=== PATIENT | male | born 1990 | race Caucasian/White ===

== ENCOUNTER → 2016-07-13 | Outpatient (REF) | payer OTHER | LOC: M SMT 10:00 | PROVIDERS: ATTEND Urology | DX: Z30.2 Encounter for sterilization (principal) ==

== ENCOUNTER → 2016-09-23 | Outpatient (REF) | payer OTHER ==
[2016-09-23 10:58] LABS: IMMMOTILE SPERM CENTRIFUGED ABSENT (ABSENT); IMMOTILE SPERM ABSENT (ABSENT); MOTILE SPERM ABSENT (ABSENT); MOTILE SPERM CENTRIFUGED ABSENT (ABSENT)
== END ==
LOC: M LAB REF 09:53
PROVIDERS: ATTEND Urology
DX: Z98.52 Vasectomy status (principal)

== ENCOUNTER 2018-04-27 13:16 | Inpatient (IN) | payer OTHER ==
[2018-04-27 13:59] LABS: HEMATOCRIT 45.8 % (42.0-52.0); HEMOGLOBIN 16.6 g/dl (13.5-17.5); MEAN CORPUSCULAR HEMOGLOBIN 32.2 pg (27.0-33.0); MEAN CORPUSCULAR HGB CONC 36.2 g/dl (32.0-36.5); MEAN CORPUSCULAR VOLUME 88.9 fl (80.0-96.0); PLATELET COUNT, AUTOMATED 241 10^3/uL (150-450); RED BLOOD COUNT 5.15 10^6/uL (4.30-6.10); RED CELL DISTRIBUTION WIDTH 11.9 % (11.5-14.5); WHITE BLOOD COUNT 12.5 10^3/uL (4.0-10.0)
[2018-04-27 14:35] LABS: ACETAMINOPHEN LEVEL < 2.0 UG/ML (10.0-30.0); ALBUMIN 4.6 GM/DL (3.2-5.2); ALBUMIN/GLOBULIN RATIO 1.48 (1.00-1.93); ALKALINE PHOSPHATASE 54 U/L (45-117); ALT/SGPT 28 U/L (12-78); ANION GAP 9 MEQ/L (8-16); AST/SGOT 20 U/L (7-37); BILIRUBIN,DIRECT 0.3 MG/DL (0.0-0.2); BILIRUBIN,TOTAL 1.3 MG/DL (0.2-1.0); BLOOD UREA NITROGEN 14 MG/DL (7-18); CALCIUM LEVEL 8.9 MG/DL (8.5-10.1); CARBON DIOXIDE LEVEL 29 MEQ/L (21-32); CHLORIDE LEVEL 103 MEQ/L (98-107); CREATININE FOR GFR 0.98 MG/DL (0.70-1.30); ETHYL ALCOHOL (ETHANOL) < 0.003 % (0.000-0.010); GLOMERULAR FILTRATION RATE > 60.0 (>60); GLUCOSE, FASTING 91 MG/DL (70-100); POTASSIUM SERUM 3.9 MEQ/L (3.5-5.1); SALICYLATE LEVEL < 1.7 MG/DL (5.0-30.0); SODIUM LEVEL 141 MEQ/L (136-145); THYROID STIMULATING HORMONE 0.728 uIU/ML (0.358-3.740); TOTAL PROTEIN 7.7 GM/DL (6.4-8.2)
[2018-04-27 15:46] LABS: AMPHETAMINES LEVEL URINE NEGATIVE (NEGATIVE); BARBITURATES URINE NEGATIVE (NEGATIVE); BENZODIAZEPINES URINE NEGATIVE (NEGATIVE); CANNABINOIDS URINE NEGATIVE (NEGATIVE); COCAINE METABOLITE URINE NEGATIVE (NEGATIVE); METHADONE URINE NEGATIVE (NEGATIVE); OPIATES URINE NEGATIVE (NEGATIVE); PHENCYCLIDINE URINE NEGATIVE (NEGATIVE)
[2018-04-27] MEDS ORDERED: traZODone 50 MG TAB PO (16:30)
[2018-04-27] MEDS ORDERED: MOM 30ML SUSPENSION UDC PO (16:30)
[2018-04-27] MEDS: ACETAMINOPHEN TAB 650MG DOSE (2X325MG) PO (20:33)
[2018-04-27] MEDS: THIAMINE 100 MG TAB PO (21:00)
[2018-04-27] MEDS ORDERED: LORazepam 2 MG TAB PO (21:15)
[2018-04-28] MEDS: FOLIC ACID 1 MG TAB PO (08:15)
[2018-04-28] MEDS: MULTIVITAMINS/MINERALS THERAP 1 TAB PO (08:15)
[2018-04-28] MEDS: NICOTINE 7 MG/24 HR TRANSDERMAL TD (08:15)
[2018-04-28] MEDS: THIAMINE 100 MG TAB PO ×2 (08:15→20:43)
[2018-04-28] MEDS: ACETAMINOPHEN TAB 650MG DOSE (2X325MG) PO ×2 (08:16→20:43)
[2018-04-29 06:57] LABS: BASO # 0.1 10^3/uL (0.0-0.2); BASO % 0.8 % (0.0-1.0); EOS # 0.2 10^3/uL (0.0-0.50); EOS % 2.7 % (0.0-3.0); HEMATOCRIT 43.5 % (42.0-52.0); HEMOGLOBIN 15.5 g/dl (13.5-17.5); IMMATURE GRANULOCYTE % 0.5 % (0-3.0); LYMPH # 1.9 10^3/uL (1.5-6.5); LYMPH % 30.4 % (24.0-44.0); MEAN CORPUSCULAR HEMOGLOBIN 32.1 pg (27.0-33.0); MEAN CORPUSCULAR HGB CONC 35.6 g/dl (32.0-36.5); MEAN CORPUSCULAR VOLUME 90.1 fl (80.0-96.0); MONO # 0.5 10^3/uL (0.0-0.8); MONO % 7.4 % (0.0-5.0); NEUTROPHILS # 3.7 10^3/uL (1.8-7.7); NEUTROPHILS % 58.2 % (36.0-66.0); PLATELET COUNT, AUTOMATED 221 10^3/uL (150-450); RED BLOOD COUNT 4.83 10^6/uL (4.30-6.10); RED CELL DISTRIBUTION WIDTH 11.9 % (11.5-14.5); WHITE BLOOD COUNT 6.4 10^3/uL (4.0-10.0)
[2018-04-29 07:21] LABS: ALBUMIN/GLOBULIN RATIO 1.33 (1.00-1.93); ALKALINE PHOSPHATASE 49 U/L (45-117); ALT/SGPT 22 U/L (12-78); ANION GAP 5 MEQ/L (8-16); AST/SGOT 12 U/L (7-37); BILIRUBIN,TOTAL 0.8 MG/DL (0.2-1.0); BLOOD UREA NITROGEN 16 MG/DL (7-18); CARBON DIOXIDE LEVEL 29 MEQ/L (21-32); CHLORIDE LEVEL 106 MEQ/L (98-107); CREATININE FOR GFR 1.02 MG/DL (0.70-1.30); GLOMERULAR FILTRATION RATE > 60.0 (>60); GLUCOSE, FASTING 111 MG/DL (70-100); POTASSIUM SERUM 4.4 MEQ/L (3.5-5.1); SODIUM LEVEL 140 MEQ/L (136-145)
[2018-04-29] MEDS: FOLIC ACID 1 MG TAB PO (07:59)
[2018-04-29] MEDS: MULTIVITAMINS/MINERALS THERAP 1 TAB PO (07:59)
[2018-04-29] MEDS: THIAMINE 100 MG TAB PO ×2 (07:59→21:32)
[2018-04-29] MEDS: NICOTINE 7 MG/24 HR TRANSDERMAL TD (07:59)
[2018-04-29] MEDS: ACETAMINOPHEN TAB 650MG DOSE (2X325MG) PO ×2 (08:00→21:33)
[2018-04-30] MEDS: ACETAMINOPHEN TAB 650MG DOSE (2X325MG) PO (06:27)
[2018-04-30] MEDS: MULTIVITAMINS/MINERALS THERAP 1 TAB PO (08:36)
[2018-04-30] MEDS: FOLIC ACID 1 MG TAB PO (08:36)
[2018-04-30] MEDS: NICOTINE 7 MG/24 HR TRANSDERMAL TD (08:36)
[2018-04-30] MEDS: THIAMINE 100 MG TAB PO (08:36)
[2018-04-30] MEDS: NICOTINE 14 MG/24 HR TRANSDERMAL TD (09:20)
[2018-04-30] MEDS ORDERED: PILL CRUSHER/CUTTER 1 EACH XX (11:15)
[2018-04-30] MEDS: MAALOX 30 ML SUSP *UDC PO ×2 (17:17→23:23)
[2018-05-01] MEDS: NICOTINE 14 MG/24 HR TRANSDERMAL TD (08:16)
[2018-05-01] MEDS: MAALOX 30 ML SUSP *UDC PO ×3 (08:19→18:39)
[2018-05-01] MEDS: ACETAMINOPHEN TAB 650MG DOSE (2X325MG) PO (08:19)
[2018-05-02] MEDS: NICOTINE 14 MG/24 HR TRANSDERMAL TD (09:00)
[2018-05-02] MEDS: ACETAMINOPHEN TAB 650MG DOSE (2X325MG) PO (09:12)
[2018-05-02] MEDS: OMEPRAZOLE 20 MG CAP PO (11:14)
[2018-05-03] MEDS: OMEPRAZOLE 20 MG CAP PO (08:15)
[2018-05-03] MEDS: NICOTINE 14 MG/24 HR TRANSDERMAL TD (08:16)
== END 2018-05-03 10:30 | disposition home or self-care (01) | DRG 885 ==
LOC: M ED 13:16 → M ED INP 16:26 → M PSY 17:33
PROVIDERS: Psychiatry & Neurology Psychiatry
DX: F33.9 Major depressive disorder, recurrent, unspecified (principal); F10.20 Alcohol dependence, uncomplicated; F43.10 Post-traumatic stress disorder, unspecified; F17.210 Nicotine dependence, cigarettes, uncomplicated; Z63.0 Problems in relationship with spouse or partner; Z79.899 Other long term (current) drug therapy; Z56.6 Other physical and mental strain related to work; Z91.82 Personal history of military deployment; Z59.9 Problem related to housing and economic circumstances, unspecified

== ENCOUNTER 2018-08-13 18:39 | Inpatient (IN) | payer OTHER ==
[~2018-08-13] VITALS: Ht 205.7 cm; Wt 86.0 kg
[~2018-08-13 18:39] MED LIST: ACET500T15 PO; ARIP2TAB PO; ZOLO50TA PO
[2018-08-13] MEDS ORDERED: BUPR300T34 PO (18:49)
[2018-08-13] MEDS ORDERED: OMEP40CA2 PO (18:49)
[2018-08-13] MEDS ORDERED: HYDR100C PO (18:49)
--- NOTE | 2018-08-13 20:28 | REP ---
Portable chest x-ray: Single view. History: Altered mental status. Findings: EKG monitoring electrodes are seen. Lungs are symmetrically aerated and clear. Pleural angles are sharp. Heart size is normal. Pulmonary vasculature is not increased. No bony abnormality is seen. Impression: No active disease. Electronically Signed by Eddie Yeh MD 08/13/2018 08:20 P
--- NOTE | 2018-08-13 20:42 | REP ---
Head CT without contrast: History: Altered mental status. Comparison study: No comparison study. CT findings: Bone window settings demonstrate an intact bony calvarium. There is no evidence of skull fracture or incidental bony calvarial lesion. The visualized paranasal sinuses appear clear. No intraorbital abnormality is seen. On soft tissue window setting images; the lateral, third, and fourth ventricles are normal in size and position. Benoit-white differentiation pattern is normal above and below the tentorium. There are is no evidence of intracranial hemorrhage. No mass, edema, infarction, or midline shift is seen. No extra-axial fluid collection is appreciated. Impression: Negative noncontrast head CT. Electronically Signed by Eddie Yeh MD 08/13/2018 08:34 P
[2018-08-13 20:43] LABS: BASO # 0.1 10^3/uL (0.0-0.2); EOS # 0.1 10^3/uL (0.0-0.50); EOS % 1.3 % (0.0-3.0); HEMATOCRIT 44.7 % (42.0-52.0); HEMOGLOBIN 16.5 g/dl (13.5-17.5); LYMPH # 2.8 10^3/uL (1.5-6.5); LYMPH % 31.2 % (24.0-44.0); MEAN CORPUSCULAR HEMOGLOBIN 32.2 pg (27.0-33.0); MEAN CORPUSCULAR VOLUME 87.3 fl (80.0-96.0); MONO # 0.8 10^3/uL (0.0-0.8); MONO % 9.3 % (0.0-5.0); NEUTROPHILS # 5.1 10^3/uL (1.8-7.7); PLATELET COUNT, AUTOMATED 232 10^3/uL (150-450); RED BLOOD COUNT 5.12 10^6/uL (4.30-6.10); WHITE BLOOD COUNT 8.9 10^3/uL (4.0-10.0)
[2018-08-13 20:49] LABS: MEAN CORPUSCULAR HGB CONC 36.9 g/dl (32.0-36.5)
[2018-08-13 21:07] LABS: ACETAMINOPHEN LEVEL < 2.0 UG/ML (10.0-30.0); ALBUMIN 4.4 GM/DL (3.2-5.2); ALT/SGPT 36 U/L (12-78); BILIRUBIN,DIRECT 0.4 MG/DL (0.0-0.2); BILIRUBIN,TOTAL 1.8 MG/DL (0.2-1.0); BLOOD UREA NITROGEN 12 MG/DL (7-18); CALCIUM LEVEL 8.6 MG/DL (8.5-10.1); CARBON DIOXIDE LEVEL 28 MEQ/L (21-32); CHLORIDE LEVEL 107 MEQ/L (98-107); CPK CREATINE PHOSPHOKINASE 197 U/L (39-308); ETHYL ALCOHOL (ETHANOL) < 0.003 % (0.000-0.010); GLOMERULAR FILTRATION RATE > 60.0 (>60); GLUCOSE, FASTING 87 MG/DL (70-100); POTASSIUM SERUM 3.8 MEQ/L (3.5-5.1); SALICYLATE LEVEL < 1.7 MG/DL (5.0-30.0); SODIUM LEVEL 140 MEQ/L (136-145); TOTAL PROTEIN 7.5 GM/DL (6.4-8.2)
[2018-08-13 23:47] LABS: AMPHETAMINES LEVEL URINE NEGATIVE (NEGATIVE); BARBITURATES URINE NEGATIVE (NEGATIVE); BENZODIAZEPINES URINE NEGATIVE (NEGATIVE); CANNABINOIDS URINE NEGATIVE (NEGATIVE); COCAINE METABOLITE URINE NEGATIVE (NEGATIVE); METHADONE URINE NEGATIVE (NEGATIVE); OPIATES URINE NEGATIVE (NEGATIVE); PHENCYCLIDINE URINE NEGATIVE (NEGATIVE)
[2018-08-14] MEDS ORDERED: MOM 30ML SUSPENSION UDC PO PRN (00:30)
[2018-08-14] MEDS ORDERED: traZODone 50 MG TAB PO PRN (00:30)
[2018-08-14] MEDS ORDERED: MAALOX 30 ML SUSP *UDC PO PRN (00:30)
[2018-08-14] MEDS ORDERED: WELLTAB40 PO (00:54)
[2018-08-14] MEDS ORDERED: DOXE50CA PO (00:54)
[2018-08-14] MEDS ORDERED: OMEP20CA3 PO (00:54)
[2018-08-14] MEDS ORDERED: HYDR50CA2 PO (00:54)
[2018-08-14 07:03] VITALS: BP 122/62
--- NOTE | 2018-08-14 08:53 | ECGEPIP ---
Stationary ECG Study [facility] - ED Test Date: 2018-08-13 Pat Name: APURVA BAUTISTA Department: Room: [place] [address] Gender: M Departmental Shipping Clerk: JOSE RAUL : 1990 Requested By: Michaela Baer Order Number: [id number] Reading MD: Kedar Nix Measurements Intervals [place] Rate: 81 P: 25 PA: 163 QRS: 32 QRSD: 109 T: 14 QT: 352 QTc: 410 Interpretive Statements SINUS RHYTHM INCOMPLETE RIGHT BUNDLE BRANCH BLOCK POOR R WAVE PROGRESSION SIMILAR TO 04/29/18 Electronically Signed On 08-14-2018 8:53:17 EDT by Kedar Nix
--- NOTE | 2018-08-14 10:21 | HPEPDOC ---
[facility] Medical History & Physical Date of Admission Aug 14, 2018 History and Physical PCP: [facility] ATTENDING: Dr. Austin Allen HPI: 28yoM admitted to [facility] for unspecified depressive disorder, being medically examined today. The pt was brought to the ED with AMS after possibly taking unknown amount of hydrxyzine, Wellbutrin and Prilosec. The pt was medically cleared and transferred to [facility]. No acute medical complaints today. Denies any fevers, chills, weakness, fatigue, SAAVEDRA, CP, SOB, cough, palpitations, abdominal pain, N/V/D or changes in bowel or bladder habits. PMHx: Anxiety depression H/O SI H/O alcohol use chronic back pain GERD PSHX: tonsillectomy wisdom teeth extraction Vasectomy SOCHX: Resides in: [facility], from [facility] Marital Status: Kids: 2 Employment: Active duty Tobacco use: 1/2 ppd ETOH: States h/o alcohol use, none in 105 days Illicit Drugs: Denies IV Drug Use: Denies Tattoos done unprofessionally: Denies FAMHX: Mother: Alive, h/o cancer Father: Alive, HTN Siblings: brother Alive, DM Children: Alive, well Unexpected deaths due to medical reasons: None. ROS: As noted in HPI, otherwise 11pt ROS of systems reviewed and unremarkable. PE: GEN: 28yoM, appears stated age. Well-nourished, well developed. No acute distress. Alert and oriented x 3. Pleasant, interactive. HEENT: Normocephalic, atraumatic. Pupils are equal, round, and reactive to light. Extraocular movements are intact. No nystagmus appreciated. Sclera are nonicteric. Conjunctiva without injection. Nose midline. Nasal turbinates without bogginess. EACs both patent BL. TMs both visualized and tomlinson with good cone of light, no bulging or erythema. No facial asymmetry. Moist mucous membranes. Dentition fair. Pharynx pink and moist, no cobblestoning. Neck supple, trachea midline. No lymphadenopathy or thyromegaly appreciated. CHEST: Regular rate and rhythm, +S1, +S2 LUNGS: Clear to auscultation bilaterally. No wheezes, rales, or rhonchi. Breathing appears symmetric and easy. Patient is speaking in full sentences. No accessory muscle use. ABD: Round, soft, non-tender, non-distended. +Bowel sounds throughout. No rebound or guarding. No costovertebral angle tenderness. EXT: Pulses 2+ bilaterally dorsalis pedis and radial. No lower extremity edema appreciated. SKIN: [place], dry, warm. Capillary refill <2sec. No rashes. NEURO: Alert and oriented x 3. Cranial nerves III-XII are intact. No focal deficits appreciated. EKG: SINUS RHYTHM INCOMPLETE RIGHT BUNDLE BRANCH BLOCK POOR R WAVE PROGRESSION SIMILAR TO 04/29/18 Electronically Signed On 08-14-2018 8:53:17 EDT by Kedar Nix A&P: 28yoM admitted to [facility] for unspecified depressive disorder 1. Psych. Plan per Psychiatry. EKG on file. 2. Nicotine dependence. Patch available. 3.Follow up with PCP on discharge. 4. H/O Alcohol use. Management per psychiatry. 5. GERD. Continue Prilosec. 6. Chronic back pain. Continue Tylenol as needed. Outpt f/u with PCP. Recommend pain mgmt consultation if needed. 7. Staff member Zeferino present throughout exam. Vital Signs Vital Signs Date Time Temp Pulse Resp B/P (MAP) Pulse Ox O2 Delivery O2 Flow Rate FiO2 08/14/18 07:03 99.4 92 18 122/62 (82) 08/14/18 04:03 96 Room Air Laboratory Data Labs 24H Laboratory Tests 2 08/13/18 20:21: Immature Granulocyte % (Auto) 0.2, White Blood Count 8.9, Red Blood Count 5.12, Hemoglobin 16.5, Hematocrit 44.7, Mean Corpuscular Volume 87.3, Mean Corpuscular Hemoglobin 32.2, Mean Corpuscular Hemoglobin Concent 36.9H, Red Cell Distribution Width 11.8, Platelet Count 232, Neutrophils (%) (Auto) 57.0, Lymphocytes (%) (Auto) 31.2, Monocytes (%) (Auto) 9.3H, Eosinophils (%) (Auto) 1.3, Basophils (%) (Auto) 1.0, Neutrophils # (Auto) 5.1, Lymphocytes # (Auto) 2.8, Monocytes # (Auto) 0.8, Eosinophils # (Auto) 0.1, Basophils # (Auto) 0.1, Nucleated Red Blood Cells % (auto) 0.0, Anion Gap 5L, Glomerular Filtration Rate > 60.0, Calcium Level 8.6, Aspartate Amino Transf (AST/SGOT) 21, Alanine Aminotransferase (ALT/SGPT) 36, Alkaline Phosphatase 54, Total Bilirubin 1.8H, Direct Bilirubin 0.4H, Total Creatine Kinase 197, Total Protein 7.5, Albumin 4.4, Albumin/Globulin Ratio 1.42, Thyroid Stimulating Hormone (TSH) 1.360, Salicylates Level < 1.7L, Acetaminophen Level < 2.0L, Ethyl Alcohol Level < 0.003 08/13/18 23:18: Urine Amphetamines Screen NEGATIVE, Urine Benzodiazepines Screen NEGATIVE, Urine Opiates Screen NEGATIVE, Urine Methadone Screen NEGATIVE, Urine Barbiturates Screen NEGATIVE, Urine Phencyclidine Screen NEGATIVE, Urine Cocaine Metabolite Screen NEGATIVE, Urine Cannabinoids Screen NEGATIVE CBC/BMP Laboratory Tests 08/13/18 20:21 Red Blood Count 5.12, Mean Corpuscular Volume 87.3, Mean Corpuscular Hemoglobin 32.2, Mean Corpuscular Hemoglobin Concent 36.9 H, Red Cell Distribution Width 11.8, Neutrophils (%) (Auto) 57.0, Lymphocytes (%) (Auto) 31.2, Monocytes (%) (Auto) 9.3 H, Eosinophils (%) (Auto) 1.3, Basophils (%) (Auto) 1.0, Neutrophils # (Auto) 5.1, Lymphocytes # (Auto) 2.8, Monocytes # (Auto) 0.8, Eosinophils # (Auto) 0.1, Basophils # (Auto) 0.1 Home Medications Scheduled Bupropion HCl (Wellbutrin Xl) 300 Mg Tab, 300 MG PO DAILY Omeprazole (Omeprazole) 20 Mg Cap, 20 MG PO DAILY Scheduled PRN Acetaminophen (Acetaminophen) 500 Mg Tab, 1,000 MG PO Q6H PRN for PAIN Doxepin HCl (Doxepin HCl) 50 Mg Cap, 50 MG PO QHS PRN for SLEEP Hydroxyzine Pamoate (Hydroxyzine Pamoate) 50 Mg Cap, 50 MG PO QID PRN for ANXIETY Allergies Coded Allergies: No Known Allergies (Unverified , 04/27/18) Jasmin Daniels Aug 14, 2018 10:21
[2018-08-14] MEDS ORDERED: hydrOXYzine 50 MG TAB PO SCH (12:15)
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
[2018-08-14] MEDS ORDERED: DOXEPIN 25 MG CAP PO PRN (14:00)
[2018-08-14 14:57] LABS: CHLAMYDIA DNA AMPLIFICATION NEGATIVE (NEGATIVE); GC DNA AMPLIFICATION NEGATIVE (NEGATIVE)
[2018-08-14 18:26] VITALS: BP 140/87
[2018-08-15 06:25] VITALS: BP 119/71
[2018-08-15 07:26] LABS: CHOLESTEROL RISK RATIO 3.704 (<5)
[2018-08-15] MEDS ORDERED: hydrOXYzine 50 MG TAB PO PRN ×2 (08:30→12:15)
[2018-08-15] MEDS ORDERED: buPROPion **XL** TABLET 150MG (WELLBUTRIN XL) PO SCH (09:00)
[2018-08-15 18:10] VITALS: BP 140/85
[2018-08-15] MEDS ORDERED: VENLAFAXINE **XR** 37.5 MG CAPSULE PO SCH (21:00)
--- NOTE | 2018-08-15 22:36 | MHIPNPDOC ---
[facility] Progress Note Progress Note DATE OF SERVICE: 08/15/18 HISTORY: Patient is a 28 -year-old , male, who according to ED report: " Pt brought to ED by [facility] after he apparently spoke or texted his brother today making suicidal threats. Pt is quite guarded and evasive in ED, answers to most questions "I believe", implying he does not recall anything about what was reported today, when asked about tx hx and medications pt responds with same "I believe so". Pt does admit to feeling depressed, states "my life is a shit show", will not elaborate or discuss stressors, when asked if he ingested extra medications as was reported earlier pt states he cannot recall. Pt appears unreliable, poor eye contact, minimal answers. Pt denies HI/AH/VH, denies recent substance abuse has hx of ETOH abuse. Pt was admitted to [facility] 04/15 for depression/SI, at that time was depressed over marital and occupational issues. Pt admits to suicidal "plan" nine years ago whe he attempted to purchase an illegal firearm while in [place], stated he had "planned for some time" to purchase the gun and shoot self. Pt exhibits poor insight/judgment, appears at risk for self harm." VITAL SIGNS: See below. NEW TEST RESULTS: See below CURRENT MEDICATIONS: See below. MENTAL STATUS EXAMINATION: General Appearance: well groomed, appears stated age, hospital scubs/clothing Build: average Demeanor: less guarded, depressed, anxious Eye Contact: intense Activity: anxious, laying in bed Behavior: cooperative Speech: clear, spontaneous, reg/rate,rhythm,volume Mood: depressed, anxious Affect: anxious, hostile Thought Process: logical/linear Thought Content (Delusions): none reported Thought Content (Other): guarded, guilty Thought Content (Aggressive): none reported Perception (Hallucinations): none reported Perception (Other): none reported Cognition (Impairment of): none reported Cognition(Intelligence Est.): average Oriented: Awake, Alert, Oriented times three Insight: poor Judgment: Poor Psychosis: Denies Diagnoses 1. Adjustment disorder with depressed/anxious 2. Cluster B personality disorder (borderline and antisocial traits) 3. Generalized Anxiety disorder ASSESSMENT: Patient continues to report a series of cognitive distortions that are related to his marital life. In a not very clear way, he implies that he has learned that apparently his has been supportive of him when he thought she "was not supportive". He worries about his lack of recall about monday afternoon. He says it's not the first time that this happens to him, it has been 3 times within the last year. Patient's demeanor is more cooperative today, he is begining to realize that he has contributed to his marital problems, that not everything is on his . He looks less angr and more depressed today. MANAGEMENT PLAN: Will decrease Wellbutrin to 75 mgs PO tomorrow and will increase Effexor to 75 mgs PO tomorrow. TIME SPENT: 30 minutes. Vital Signs Vital Signs Date Time Temp Pulse Resp B/P (MAP) Pulse Ox O2 Delivery O2 Flow Rate FiO2 08/15/18 06:25 98.6 65 18 119/71 (87) 08/14/18 04:03 96 Room Air Laboratory Data 24H Labs Laboratory Tests 2 08/15/18 06:19: Triglycerides Level 166H, LDL Cholesterol 86, Total Cholesterol 163, Non-HDL Cholesterol (LDL + VLDL) 119, Total HDL Cholesterol 44, Cholesterol/HDL Ratio 3.704 Current Medications Current Medications Acetaminophen (Tylenol Tab) 650 mg Q6HP PRN PO HEADACHE or DISCOMFORT; Start 08/14/18 at 00:30 Al Hydrox/Mg Hydrox/Simethicone (Mylanta) 30 ml Q4HP PRN PO HE ARTBURN/INDIGESTION; Start 08/14/18 at 00:30 Bupropion HCl (Wellbutrin Xl) 150 mg QAM PO Last administered on 08/15/18at 08:21; Start 08/15/18 at 09:00 Doxepin HCl (SINEquan) 50 mg QHS PRN PO INSOMNIA; Start 08/14/18 at 14:00 Home Med (Med Rec Complete!) ASDIRECTED XX ; Start 08/14/18 at 01:00; Stop 08/14/18 at 01:00; Status DC Hydroxyzine HCl (Atarax) 50 mg Q6H PO ; Start 08/14/18 at 12:15; Stop 08/14/18 at 14:00; Status DC Hydroxyzine HCl (Atarax) 50 mg Q6HP PRN PO ANXIETY/AGITATION Last administered on 08/15/18at 09:21; Start 08/15/18 at 08:30 Hydroxyzine HCl (Atarax) 50 mg Q6HP PRN PO ANXIETY/AGITATION; Start 08/15/18 at 12:15; Stop 08/15/18 at 12:15; Status DC Magnesium Hydroxide (Milk Of Magnesia) 30 ml DAILYPRN PRN PO CONSTIPATION; Start 08/14/18 at 00:30 Trazodone HCl (Desyrel) 50 mg QHSP PRN PO INSOMNIA; Start 08/14/18 at 00:30 Venlafaxine HCl (Effexor Xr) 37.5 mg QHS PO ; Start 08/15/18 at 21:00 Allergies Coded Allergies: No Known Allergies (Unverified , 04/27/18) AMOL JAUN MD Aug 15, 2018 16:03
[2018-08-15] MEDS ORDERED: PILL CRUSHER/CUTTER 1 EACH XX PRN (22:45)
[2018-08-16 06:30] VITALS: BP 141/78
[2018-08-16] MEDS: ACETAMINOPHEN TAB 650MG DOSE (2X325MG) PO PRN (08:36)
[2018-08-16] MEDS ORDERED: buPROPion 100 MG TAB PO SCH (09:00)
[2018-08-16] MEDS ORDERED: VENLAFAXINE **XR** 75MG CAPSULE PO SCH (09:00)
[2018-08-16 18:00] VITALS: BP 140/83
--- NOTE | 2018-08-16 18:35 | MHIPNPDOC ---
[facility] Progress Note Progress Note DATE OF SERVICE: 08/16/18 HISTORY: Patient is a 28 -year-old , male, who according to ED report: " Pt brought to ED by [facility] after he apparently spoke or texted his brother today making suicidal threats. Pt is quite guarded and evasive in ED, answers to most questions "I believe", implying he does not recall anything about what was reported today, when asked about tx hx and medications pt responds with same "I believe so". Pt does admit to feeling depressed, states "my life is a shit show", will not elaborate or discuss stressors, when asked if he ingested extra medications as was reported earlier pt states he cannot recall. Pt appears unreliable, poor eye contact, minimal answers. Pt denies HI/AH/VH, denies recent substance abuse has hx of ETOH abuse. Pt was admitted to [facility] 04/15 for depression/SI, at that time was depressed over marital and occupational issues. Pt admits to suicidal "plan" nine years ago whe he attempted to purchase an illegal firearm while in [place], stated he had "planned for some time" to purchase the gun and shoot self. Pt exhibits poor insight/judgment, appears at risk for self harm." VITAL SIGNS: See below. NEW TEST RESULTS: See below CURRENT MEDICATIONS: See below. MENTAL STATUS EXAMINATION: General Appearance: well groomed, appears stated age, hospital scrubs/clothing, yawning all the time Build: average Demeanor: less guarded, depressed, anxious, Eye Contact: intense Activity: calm, mildly anxious Behavior: cooperative Speech: clear, spontaneous, reg/rate,rhythm,volume Mood: depressed, anxious Affect: anxious Thought Process: logical/linear Thought Content (Delusions): none reported Thought Content (Other): guarded, guilty Thought Content (Aggressive): none reported Perception (Hallucinations): none reported Perception (Other): none reported Cognition (Impairment of): none reported Cognition(Intelligence Est.): average Oriented: Awake, Alert, Oriented times three Insight: poor Judgment: Poor Psychosis: Denies Diagnoses 1. Adjustment disorder with depressed/anxious 2. Cluster B personality disorder (borderline and antisocial traits) 3. Generalized Anxiety disorder ASSESSMENT:patient says he doesn't believe he overdosed on Monday when he can't remember what happened during the afternoon. He says he keeps his medications where he keeps his child's medications in a safe. He says he spoke to his yesterday, she was surprised he was in here, they had a good conversation, they didn't fight but he still thinks that he will end up him MANAGEMENT PLAN: Effexor 75 mgs PO BID TIME SPENT: 30 minutes. Vital Signs Vital Signs Date Time Temp Pulse Resp B/P (MAP) Pulse Ox O2 Delivery O2 Flow Rate FiO2 08/16/18 06:30 98.9 63 18 141/78 (99) 08/14/18 04:03 96 Room Air Current Medications Current Medications Acetaminophen (Tylenol Tab) 650 mg Q6HP PRN PO HEADACHE or DISCOMFORT Last administered on 08/16/18at 08:36; Start 08/14/18 at 00:30 Al Hydrox/Mg Hydrox/Simethicone (Mylanta) 30 ml Q4HP PRN PO HEARTBURN/INDIGESTION; Start 08/14/18 at 00:30 Bupropion HCl (Wellbutrin Xl) 150 mg QAM PO Last administered on 08/15/18at 08:21; Start 08/15/18 at 09:00; Stop 08/15/18 at 22:39; Status DC Bupropion HCl (Wellbutrin) 50 mg DAILY PO Last administered on 08/16/18at 08:37; Start 08/16/18 at 09:00; Stop 08/16/18 at 18:18; Status DC Doxepin HCl (SINEquan) 50 mg QHS PRN PO INSOMNIA; Start 08/14/18 at 14:00 Home Med (Med Rec Complete!) ASDIRECTED XX ; Start 08/14/18 at 01:00; Stop 08/14/18 at 01:00; Status DC Hydroxyzine HCl (Atarax) 50 mg Q6H PO ; Start 08/14/18 at 12:15; Stop 08/14/18 at 14:00; Status DC Hydroxyzine HCl (Atarax) 50 mg Q6HP PRN PO ANXIETY/AGITATION Last administered on 08/15/18at 09:21; Start 08/15/18 at 08:30 Hydroxyzine HCl (Atarax) 50 mg Q6HP PRN PO ANXIETY/AGITATION; Start 08/15/18 at 12:15; Stop 08/15/18 at 12:15; Status DC Magnesium Hydroxide (Milk Of Magnesia) 30 ml DAILYPRN PRN PO CONSTIPATION; Start 08/14/18 at 00:30 Trazodone HCl (Desyrel) 50 mg QHSP PRN PO INSOMNIA; Start 08/14/18 at 00:30 Venlafaxine HCl (Effexor Xr) 37.5 mg QHS PO Last administered on 08/15/18at 21:24; Start 08/15/18 at 21:00; Stop 08/15/18 at 22:39; Status DC Venlafaxine HCl (Effexor Xr) 75 mg QAM PO Last administered on 08/16/18at 08:36; Start 08/16/18 at 09:00 Allergies Coded Allergies: No Known Allergies (Unverified , 04/27/18) AMOL JUAN MD Aug 16, 2018 18:35
[2018-08-17 06:49] VITALS: BP 146/80
[2018-08-17] MEDS: VENLAFAXINE 37.5 MG TAB PO SCH ×2 (08:44→20:12)
[2018-08-17] MEDS: ACETAMINOPHEN TAB 650MG DOSE (2X325MG) PO PRN (16:25)
--- NOTE | 2018-08-17 17:35 | MHIPNPDOC ---
[facility] Progress Note Progress Note DATE OF SERVICE: 08/17/18 HISTORY: Patient is a 28 -year-old , male, who according to ED report: " Pt brought to ED by [facility] after he apparently spoke or texted his brother today making suicidal threats. Pt is quite guarded and evasive in ED, answers to most questions "I believe", implying he does not recall anything about what was reported today, when asked about tx hx and medications pt responds with same "I believe so". Pt does admit to feeling depressed, states "my life is a shit show", will not elaborate or discuss stressors, when asked if he ingested extra medications as was reported earlier pt states he cannot recall. Pt appears unreliable, poor eye contact, minimal answers. Pt denies HI/AH/VH, denies recent substance abuse has hx of ETOH abuse. Pt was admitted to [facility] 04/15 for depression/SI, at that time was depressed over marital and occupational issues. Pt admits to suicidal "plan" nine years ago whe he attempted to purchase an illegal firearm while in [place], stated he had "planned for some time" to purchase the gun and shoot self. Pt exhibits poor insight/judgment, appears at risk for self harm." VITAL SIGNS: See below. NEW TEST RESULTS: See below CURRENT MEDICATIONS: See below. MENTAL STATUS EXAMINATION: General Appearance: well groomed, appears stated age, hospital scrubs/clothing, yawning all the time Build: average Demeanor: less guarded, depressed, anxious, Eye Contact: intense Activity: calm, mildly anxious Behavior: cooperative Speech: clear, spontaneous, reg/rate,rhythm,volume Mood: depressed, anxious Affect: anxious Thought Process: logical/linear Thought Content (Delusions): none reported Thought Content (Other): guarded, guilty Thought Content (Aggressive): none reported Perception (Hallucinations): none reported Perception (Other): none reported Cognition (Impairment of): none reported Cognition(Intelligence Est.): average Oriented: Awake, Alert, Oriented times three Insight: poor Judgment: Poor Psychosis: Denies Diagnoses 1. Adjustment disorder with depressed/anxious 2. Cluster B personality disorder (borderline and antisocial traits) 3. Generalized Anxiety disorder ASSESSMENT:Patient's mental status hasn't changed from yesterday. He doesn't seem to be interested in his treatment, for a brief moment it seemed he was but not now. He only wants to be discharged. MANAGEMENT PLAN: Effexor 75 mgs PO BID TIME SPENT: 30 minutes. Vital Signs Vital Signs Date Time Temp Pulse Resp B/P (MAP) Pulse Ox O2 Delivery O2 Flow Rate FiO2 08/17/18 06:49 99.3 66 12 146/80 (102) 08/14/18 04:03 96 Room Air Current Medications Current Medications Acetaminophen (Tylenol Tab) 650 mg Q6HP PRN PO HEADACHE or DISCOMFORT Last administered on 08/17/18at 16:25; Start 08/14/18 at 00:30 Al Hydrox/Mg Hydrox/Simethicone (Mylanta) 30 ml Q4HP PRN PO HEARTBURN/INDIGESTION; Start 08/14/18 at 00:30 Bupropion HCl (Wellbutrin Xl) 150 mg QAM PO Last administered on 08/15/18 08:21; Start 08/15/18 at 09:00; Stop 08/15/18 at 22:39; Status DC Bupropion HCl (Wellbutrin) 50 mg DAILY PO Last administered on 08/16/18at 08:37; Start 08/16/18 at 09:00; Stop 08/16/18 at 18:18; Status DC Doxepin HCl (SINEquan) 50 mg QHS PRN PO INSOMNIA; Start 08/14/18 at 14:00 Home Med (Med Rec Complete!) ASDIRECTED XX ; Start 08/14/18 at 01:00; Stop 08/14/18 at 01:00; Status DC Hydroxyzine HCl (Atarax) 50 mg Q6H PO ; Start 08/14/18 at 12:15; Stop 08/14/18 at 14:00; Status DC Hydroxyzine HCl (Atarax) 50 mg Q6HP PRN PO ANXIETY/AGITATION Last administered on 08/15/18at 09:21; Start 08/15/18 at 08:30 Hydroxyzine HCl (Atarax) 50 mg Q6HP PRN PO ANXIETY/AGITATION; Start 08/15/18 at 12:15; Stop 08/15/18 at 12:15; Status DC Magnesium Hydroxide (Milk Of Magnesia) 30 ml DAILYPRN PRN PO CONSTIPATION; Start 08/14/18 at 00:30 Trazodone HCl (Desyrel) 50 mg QHSP PRN PO INSOMNIA; Start 08/14/18 at 00:30 Venlafaxine HCl (Effexor Xr) 37.5 mg QHS PO Last administered on 08/15/18at 21:24; Start 08/15/18 at 21:00; Stop 08/15/18 at 22:39; Status DC Venlafaxine HCl (Effexor Xr) 75 mg QAM PO Last administered on 08/16/18at 08:36; Start 08/16/18 at 09:00; Stop 08/16/18 at 18:21; Status DC Venlafaxine HCl (Effexor) 75 mg BID PO Last administered on 08/17/18at 08:44; Start 08/17/18 at 09:00 Allergies Coded Allergies: No Known Allergies (Unverified , 04/27/18) AMOL JUAN MD Aug 17, 2018 17:35
[2018-08-17 18:12] VITALS: BP 138/76
[2018-08-18 06:35] VITALS: BP 130/83
[2018-08-18] MEDS: VENLAFAXINE 37.5 MG TAB PO SCH ×2 (09:34→21:42)
[2018-08-18 18:00] VITALS: BP 134/77
[2018-08-19 06:28] VITALS: BP 119/75
[2018-08-19] MEDS: VENLAFAXINE 37.5 MG TAB PO SCH ×2 (09:23→20:15)
--- NOTE | 2018-08-19 14:03 | MHIPN ---
DATE: 08/18/2018 CHIEF COMPLAINT: He says he feels okay. SUBJECTIVE: He is seen for followup in the presence of staff. He says he feels okay, and that slept fairly well, but does feel tired. He says appetite is fair, it has improved. He does not think that he has suicidal thoughts. MENTAL STATUS EXAMINATION: Neat, somewhat superficially cooperative. He is guarded at times. No agitation. No psychomotor retardation. Affect is restricted in range, somewhat incongruent with mood. Denies any suicidal thoughts or intents at present. No homicidal ideas or intents. Currently, no evidence of any psychosis. Cognition grossly intact. Judgment and insight are compromised. ASSESSMENT: 1. Generalized anxiety disorder. 2. Adjustment disorder with depressed mood. 3. Some concerns regarding a personality disorder. PLAN: Continue current care, observations, venlafaxine is to continue at 150 mg daily in divided doses. We will encourage him to participate in activities on the unit. Further recommendations will be made depending on the clinical picture.
[2018-08-19 18:00] VITALS: BP 138/83
[2018-08-20 06:41] VITALS: BP 139/83
[2018-08-20] MEDS: VENLAFAXINE 37.5 MG TAB PO SCH (08:54)
[2018-08-20] MEDS ORDERED: VENL37TA PO (09:17)
--- NOTE | 2018-08-21 09:31 | MHDSPDOC ---
[facility] Discharge Summary Discharge Summary DATE OF ADMISSION: Aug 14, 2018 at 00:16 DATE OF DISCHARGE: Aug 20, 2018 at 10:05 DISCHARGE DIAGNOSES: 1. Adjustment disorder with depressed/anxious 2. Cluster B personality disorder (borderline and antisocial traits) 3. Generalized Anxiety disorder REASON FOR ADMISSION: Per this health underwriter's H and P 08/14/18: "Patient is a 28 -year-old , male, who according to ED report: " Pt brought to ED by [facility] after he apparently spoke or texted his brother today making suicidal threats. Pt is quite guarded and evasive in ED, answers to most questions "I believe", implying he does not recall anything about what was reported today, when asked about tx hx and medications pt responds with same "I believe so". Pt does admit to feeling depressed, states "my life is a shit show", will not elaborate or discuss stressors, when asked if he ingested extra medications as was reported earlier pt states he cannot recall. Pt appears unreliable, poor eye contact, minimal answers. Pt denies HI/AH/VH, denies recent substance abuse has hx of ETOH abuse. Pt was admitted to [facility] 04/15 for depression/SI, at that time was depressed over marital and occupational issues. Pt admits to suicidal "plan" nine years ago whe he attempted to purchase an illegal firearm while in [place], stated he had "planned for some time" to purchase the gun and shoot self. Pt exhibits poor insight/judgment, appears at risk for self harm."" CONSULTANTS INVOLVED: None TREATMENT AND PROGRESS ON THE UNIT : Patient admitted on a 9.39 involuntary status to the [facility] after reporting suicidal ideation in the context of depression and anxiety. CBC, CMP, UA were all unremarkable. Has a history of alcohol abuse, but BAL was negative. Also urine toxicology was negative. EKG was sinus rhythm and QTc 410 ms with incomplete RBBB. He reports relationship problems and infidelities as stressors at home. He also reported agitation and anger on admission and had been prescribed Wellbutrin (bupropion), which was discontinued. He was given as needed hydroxyzine 50 mg PO QID for anxiety and as needed doxepin 50 mg PO QHS for sleep. His bupropion was switched for (Effexor) venlafaxine which was started at 37.5 mg PO daily and titrated up to 75 mg PO BID for mood and anxiety. During his stay he attended group therapy sessions, received individual group therapy and denied common or rare side effects from his medications. Blood pressure remained in the 130's/70's-80's. His depression and anxiety symptoms improved, no longer endorsed suicidal ideations and reported he would possibly seek out family therapy to help him and his develop a healthier relationship. HOSPITAL COURSE: As seen above. DISCHARGE ASSESSMENT: Patient alert and oriented x4, calm, cooperative, in no acute distress, denies any suicidal or homicidal thoughts at time of discharge. Denies any auditory or visual hallucinations. Denies paranoia or manic symptoms. States he is ready to leave and denies any common or rare side effects of medications. MENTAL STATUS EXAMINATION ON DISCHARGE: General Appearance: well groomed, appears stated age, hospital scrubs/clothing, yawning all the time, fair eye-contact Build: average Demeanor: less guarded, depressed, mild anxiety Eye Contact: fair Activity: calm, mildly anxious Behavior: cooperative Speech: clear, spontaneous, reg/rate,rhythm,volume Mood: euthymic, mild anxiety Affect: mildly anxious Thought Process: logical/linear Thought Content (Delusions): none reported Thought Content (Other): guarded, guilty Thought Content (Aggressive): none reported Perception (Hallucinations): none reported Perception (Other): none reported Cognition (Impairment of): none reported Cognition(Intelligence Est.): average Oriented: Awake, Alert, Oriented times four Insight: poor Judgment: Fair Psychosis: Denies MEDICATIONS ON DISCHARGE: Scheduled Omeprazole (Omeprazole) 20 Mg Cap, 20 MG PO DAILY Venlafaxine HCl (Venlafaxine HCl) 37.5 Mg Tab, 75 MG PO BID for mood Scheduled PRN Acetaminophen (Acetaminophen) 500 Mg Tab, 1,000 MG PO Q6H PRN for PAIN Doxepin HCl (Doxepin HCl) 50 Mg Cap, 50 MG PO QHS PRN for SLEEP Hydroxyzine Pamoate (Hydroxyzine Pamoate) 50 Mg Cap, 50 MG PO QID PRN for ANXIETY PLAN/FOLLOWUP ARRANGEMENTS: Follow Up Care Education Label * Medical * Medical Follow Up [facility]: [facility] * Established With This Provider Yes * Date Sep 05, 2018 * Time 13:00 * The amount of time spent in the coordination of care for this patient was approximately 10 minutes. Vital Signs/I&Os Vital Signs Date Time Temp Pulse Resp B/P (MAP) Pulse Ox O2 Delivery O2 Flow Rate FiO2 08/20/18 06:41 97.8 64 16 139/83 (101) 08/14/18 04:03 96 Room Air Medications Scheduled Omeprazole (Omeprazole) 20 Mg Cap, 20 MG PO DAILY, (Reported) Venlafaxine HCl (Venlafaxine HCl) 37.5 Mg Tab, 75 MG PO BID for mood for 7 Days, #14 Scheduled PRN Acetaminophen (Acetaminophen) 500 Mg Tab, 1,000 MG PO Q6H PRN for PAIN, (Reported) Doxepin HCl (Doxepin HCl) 50 Mg Cap, 50 MG PO QHS PRN for SLEEP, (Reported) Hydroxyzine Pamoate (Hydroxyzine Pamoate) 50 Mg Cap, 50 MG PO QID PRN for ANXIETY, (Reported) Allergies Coded Allergies: No Known Allergies (Unverified , 04/27/18) SID SULLIVAN PGY-1 Aug 20, 2018 11:26
== END 2018-08-20 10:05 | disposition home or self-care (01) | DRG 882 ==
LOC: M ED 18:39 → M ED INP 08-14 00:16 → M PSY 08-14 04:07
PROVIDERS: ADMIT Psychiatry & Neurology Psychiatry; ATTEND Psychiatry & Neurology Psychiatry
DX: F43.23 Adjustment disorder with mixed anxiety and depressed mood (principal); R45.851 Suicidal ideations; F41.1 Generalized anxiety disorder; F60.2 Antisocial personality disorder; F60.3 Borderline personality disorder; K21.9 Gastro-esophageal reflux disease without esophagitis; M54.5 Low back pain; F17.200 Nicotine dependence, unspecified, uncomplicated; Z79.899 Other long term (current) drug therapy

== ENCOUNTER 2018-09-30 15:18 | Inpatient (IN) | payer OTHER ==
[~2018-09-30] VITALS: Ht 175.3 cm; Wt 83.8 kg
[~2018-09-30 15:18] MED LIST changes: +ARIP1TAB4 PO; -ARIP2TAB PO; +BUPR300T34 PO; +DOXE50CA PO; +HYDR100C PO; +HYDR50CA2 PO; +OMEP20CA3 PO; +OMEP40CA2 PO; +VENL37TA PO; +WELLTAB40 PO
[2018-09-30 15:57] LABS: HEMATOCRIT 45.8 % (42.0-52.0); HEMOGLOBIN 16.5 g/dl (13.5-17.5); MEAN CORPUSCULAR VOLUME 88.8 fl (80.0-96.0); PLATELET COUNT, AUTOMATED 222 10^3/uL (150-450); RED BLOOD COUNT 5.16 10^6/uL (4.30-6.10); WHITE BLOOD COUNT 9.7 10^3/uL (4.0-10.0)
[2018-09-30 16:35] LABS: ACETAMINOPHEN LEVEL < 2.0 UG/ML (10.0-30.0); ALBUMIN 4.2 GM/DL (3.2-5.2); ALT/SGPT 36 U/L (12-78); BILIRUBIN,DIRECT 0.3 MG/DL (0.0-0.2); BILIRUBIN,TOTAL 1.7 MG/DL (0.2-1.0); BLOOD UREA NITROGEN 13 MG/DL (7-18); CALCIUM LEVEL 8.5 MG/DL (8.5-10.1); CARBON DIOXIDE LEVEL 30 MEQ/L (21-32); CHLORIDE LEVEL 106 MEQ/L (98-107); CREATININE FOR GFR 1.06 MG/DL (0.70-1.30); ETHYL ALCOHOL (ETHANOL) < 0.003 % (0.000-0.010); GLOMERULAR FILTRATION RATE > 60.0 (>60); GLUCOSE, FASTING 121 MG/DL (70-100); POTASSIUM SERUM 3.7 MEQ/L (3.5-5.1); SALICYLATE LEVEL < 1.7 MG/DL (5.0-30.0); SODIUM LEVEL 141 MEQ/L (136-145); THYROID STIMULATING HORMONE 0.718 uIU/ML (0.358-3.740); TOTAL PROTEIN 7.1 GM/DL (6.4-8.2)
[2018-09-30] MEDS ORDERED: VENL75TA2 PO (17:02)
[2018-09-30] MEDS ORDERED: VENL37.598 PO (17:02)
[2018-09-30] MEDS ORDERED: HYDR1CAP25 PO (17:02)
[2018-09-30 17:21] LABS: AMPHETAMINES LEVEL URINE NEGATIVE (NEGATIVE); BARBITURATES URINE NEGATIVE (NEGATIVE); BENZODIAZEPINES URINE NEGATIVE (NEGATIVE); CANNABINOIDS URINE NEGATIVE (NEGATIVE); COCAINE METABOLITE URINE NEGATIVE (NEGATIVE); METHADONE URINE NEGATIVE (NEGATIVE); OPIATES URINE NEGATIVE (NEGATIVE); PHENCYCLIDINE URINE NEGATIVE (NEGATIVE)
[2018-09-30] MEDS ORDERED: NICOTINE 21MG/24HR 1 EA TRANSDERMAL TD ONE (18:00)
[2018-09-30] MEDS ORDERED: ACETAMINOPHEN TAB 650MG DOSE (2X325MG) PO ONE (19:30)
[2018-09-30] MEDS ORDERED: MAALOX 30 ML SUSP *UDC PO PRN (19:45)
[2018-09-30] MEDS ORDERED: MOM 30ML SUSPENSION UDC PO PRN (19:45)
[2018-09-30] MEDS ORDERED: ACETAMINOPHEN TAB 650MG DOSE (2X325MG) PO PRN (19:45)
[2018-09-30] MEDS ORDERED: ACETAMINOPHEN 500 MG TAB PO PRN (20:30)
[2018-09-30] MEDS ORDERED: hydrOXYzine 50 MG TAB PO PRN (20:30)
[2018-09-30 20:58] VITALS: BP 137/86
--- NOTE | 2018-09-30 21:22 | ECGEPIP ---
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
[2018-09-30] MEDS: VENLAFAXINE 37.5 MG TAB PO SCH (21:56)
[2018-09-30] MEDS: traZODone 50 MG TAB PO PRN (23:06)
[2018-10-01 06:42] VITALS: BP 130/72
--- NOTE | 2018-10-01 07:35 | REP ---
CHEST: Two views. There is no evidence of acute infiltrate. No pleural effusion is seen. The heart is normal in size. The mediastinal silhouette is unremarkable. The visualized osseous structures are intact. IMPRESSION: No acute pulmonary disease. Electronically Signed by Norbert Benoit MD 10/01/2018 05:20 P
[2018-10-01] MEDS: OMEPRAZOLE 20 MG CAP PO SCH (08:59)
[2018-10-01] MEDS: VENLAFAXINE 37.5 MG TAB PO SCH ×2 (08:59→21:24)
[2018-10-01] MEDS: NICOTINE 21MG/24HR 1 EA TRANSDERMAL TD SCH (08:59)
--- NOTE | 2018-10-01 09:50 | HPEPDOC ---
General Date of Admission September 30, 2018 at 19:38 Attending Physician: MERARI WING MD Chief Complaint The patient is a 28-year-old male admitted with a reason for visit of Unspecified Mood Disorder. History of Present Illness The patient is a 28-year-old male, past medical history significant for nicotine dependence, brought to the hospital on account of suicidal thoughts. A day prior to presentation, patient was arrested secondary to domestic violence, child endangerment and harassment. The source of his stress is documented as patient's 's boyfriend living with them. On assessment, patient denies any physical symptoms, chest pain, shortness of breath. Home Medications Scheduled Omeprazole (Omeprazole) 20 Mg Cap, 20 MG PO DAILY, (Reported) Venlafaxine HCl (Venlafaxine HCl ER) 37.5 Mg Cap.er.24h, 37.5 MG PO DAILY, (Reported) TAKES WITH 75MG MORNING DOSE TO EQUAL 112.5MG Venlafaxine HCl (Venlafaxine HCl) 75 Mg Tablet, 75 MG PO BID, (Reported) Scheduled PRN Acetaminophen (Acetaminophen) 500 Mg Tab, 1,000 MG PO Q6H PRN for PAIN, (Reported) Hydroxyzine Pamoate (Hydroxyzine Pamoate) 25 Mg Capsule, 50 MG PO QID PRN for ANXIETY, (Reported) Allergies Coded Allergies: No Known Allergies (Unverified , 04/27/18) Past Medical History Medical History Nicotine dependence Anxiety Surgical History Vasectomy [place] tooth removal Tonsillectomy/adenoidectomy Family History Cancer in mother. Diabetes mellitus in brother -sibling Social History * Smoker: greater than 1 pack/day Alcohol: Denies Drugs: denies A-FIB/CHADSVASC A-FIB History Current/History of A-Fib/PAF?: No Current Oral Anticoagulant The: No Physical Examination Other physical findings GENERAL: NAD SKIN : Warm, dry intact HEENT: Atraumatic, normocephalic, PERRL, moist mucous membrane CV: Regular rate and rhythm, S1S2, no JVD, no edema, distal pulses + and palpable RESP: CTAB, no accessory muscle use noted ABDOMEN: BS+ non distended non tender MS: no joint deformities NEURO: Alert and oriented x 3, CN2-12 grossly intact PSYCH: no anxiety or agitation, appropriate mood and affect. Vital Signs Vital Signs Date Time Temp Pulse Resp B/P (MAP) Pulse Ox O2 Delivery O2 Flow Rate FiO2 10/01/18 06:42 97.9 112 18 130/72 (91) 09/30/18 20:58 97 09/30/18 20:15 Room Air Laboratory Data Labs 24H Laboratory Tests 2 09/30/18 15:39: Anion Gap 5L, Glomerular Filtration Rate > 60.0, Calcium Level 8.5, Aspartate Amino Transf (AST/SGOT) 24, Alanine Aminotransferase (ALT/SGPT) 36, Alkaline Phosphatase 59, Total Bilirubin 1.7H, Direct Bilirubin 0.3H, Total Protein 7.1, Albumin 4.2, Albumin/Globulin Ratio 1.45, Thyroid Stimulating Hormone (TSH) 0.718, Salicylates Level < 1.7L, Acetaminophen Level < 2.0L, Ethyl Alcohol Level < 0.003 09/30/18 15:40: Nucleated Red Blood Cells % (auto) 0.0, Urine Amphetamines Screen NEGATIVE, Urin e Benzodiazepines Screen NEGATIVE, Urine Opiates Screen NEGATIVE, Urine Methadone Screen NEGATIVE, Urine Barbiturates Screen NEGATIVE, Urine Phencyclidine Screen NEGATIVE, Urine Cocaine Metabolite Screen NEGATIVE, Urine Cannabinoids Screen NEGATIVE CBC/BMP Laboratory Tests 09/30/18 15:39 09/30/18 15:40 Red Blood Count 5.16, Mean Corpuscular Volume 88.8, Mean Corpuscular Hemoglobin 32.0, Mean Corpuscular Hemoglobin Concent 36.0, Red Cell Distribution Width 11.9 Assessment/Plan Nicotine dependence -Patient has been counseled -Not planning to quit at this time Suicidal ideation -Treatment and management by primary team DVT prophylaxis -Not indicated. Patient is frequently ambulatory Plan / VTE VTE Prophylaxis Ordered?: No VTE Exclusion Mechanical Proph: Low Risk for VTE CARLA LAL October 01, 2018 09:50
[2018-10-01] MEDS: VENLAFAXINE **XR** 37.5 MG CAPSULE PO SCH (11:03)
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
[2018-10-01 18:13] VITALS: BP 141/76
[2018-10-01] MEDS: traZODone 50 MG TAB PO PRN (21:24)
[2018-10-02 06:56] VITALS: BP 142/65
[2018-10-02] MEDS: NICOTINE 21MG/24HR 1 EA TRANSDERMAL TD SCH (09:00)
[2018-10-02] MEDS: OMEPRAZOLE 20 MG CAP PO SCH (09:09)
[2018-10-02] MEDS: VENLAFAXINE 37.5 MG TAB PO SCH ×2 (09:09→21:23)
[2018-10-02] MEDS: VENLAFAXINE **XR** 37.5 MG CAPSULE PO SCH (09:09)
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
[2018-10-02 18:00] VITALS: BP 124/61
[2018-10-02] MEDS: traZODone 50 MG TAB PO PRN (21:23)
[2018-10-03 07:15] VITALS: BP 102/56
[2018-10-03] MEDS: VENLAFAXINE **XR** 37.5 MG CAPSULE PO SCH (08:29)
[2018-10-03] MEDS: OMEPRAZOLE 20 MG CAP PO SCH (08:29)
[2018-10-03] MEDS: NICOTINE 21MG/24HR 1 EA TRANSDERMAL TD SCH (08:29)
[2018-10-03] MEDS: VENLAFAXINE 37.5 MG TAB PO SCH ×2 (08:30→21:02)
[2018-10-03] MEDS ORDERED: diphenhydrAMINE 50 MG CAP PO PRN (09:15)
[2018-10-03] MEDS ORDERED: CEPACOL LOZENGE PO PRN (09:15)
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
[2018-10-03 18:38] VITALS: BP 117/74
[2018-10-03] MEDS: traZODone 50 MG TAB PO PRN (21:02)
[2018-10-04 06:38] VITALS: BP 106/60
[2018-10-04] MEDS: NICOTINE 21MG/24HR 1 EA TRANSDERMAL TD SCH (08:27)
[2018-10-04] MEDS: VENLAFAXINE **XR** 37.5 MG CAPSULE PO SCH (08:27)
[2018-10-04] MEDS: VENLAFAXINE 37.5 MG TAB PO SCH (08:27)
[2018-10-04] MEDS: OMEPRAZOLE 20 MG CAP PO SCH (08:27)
[2018-10-04] MEDS ORDERED: HYDR1CAP25 PO (08:39)
[2018-10-04] MEDS ORDERED: VENL37.598 PO (08:39)
[2018-10-04] MEDS ORDERED: VENL75TA2 PO (08:39)
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
== END 2018-10-04 10:00 | disposition home or self-care (01) | DRG 881 ==
LOC: M ED 15:18 → M ED INP 19:38 → M PSY 20:43
PROVIDERS: ADMIT Psychiatry & Neurology Psychiatry; ATTEND Psychiatry & Neurology Psychiatry
DX: F34.1 Dysthymic disorder (principal); R45.851 Suicidal ideations; F60.3 Borderline personality disorder; F41.1 Generalized anxiety disorder; F60.2 Antisocial personality disorder; F17.200 Nicotine dependence, unspecified, uncomplicated

== ENCOUNTER 2019-07-18 17:56 | Emergency (ER) | payer OTHER ==
[~2019-07-18] VITALS: Ht 175.3 cm; Wt 90.2 kg
[~2019-07-18 17:56] MED LIST changes: -BUPR300T34 PO; +BUPR300T92 PO; +HYDR1CAP25 PO; +OMEP1CAP73 PO; -OMEP20CA3 PO; -OMEP40CA2 PO; +OMEP40CA97 PO; +VENL37.598 PO; +VENL75TA2 PO
[2019-07-18] MEDS: NS 1,000 ML IV ONE (19:30)
[2019-07-18 20:22] LABS: BASO # 0.1 10^3/uL (0.0-0.2); BASO % 0.8 % (0.0-1.0); EOS % 0.5 % (0.0-3.0); HEMOGLOBIN 13.5 g/dl (13.5-17.5); LYMPH % 25.1 % (24.0-44.0); MEAN CORPUSCULAR HEMOGLOBIN 30.7 pg (27.0-33.0); MEAN CORPUSCULAR HGB CONC 35.5 g/dl (32.0-36.5); MEAN CORPUSCULAR VOLUME 86.4 fl (80.0-96.0); MONO # 0.6 10^3/uL (0.0-0.8); MONO % 7.4 % (0.0-5.0); NEUTROPHILS # 5.2 10^3/uL (1.5-8.5); NEUTROPHILS % 65.8 % (36.0-66.0); PLATELET COUNT, AUTOMATED 242 10^3/uL (150-450); WHITE BLOOD COUNT 7.9 10^3/uL (4.0-10.0)
[2019-07-18 20:49] LABS: ALT/SGPT 55 U/L (12-78); BILIRUBIN,DIRECT 0.3 MG/DL (0.0-0.2); BILIRUBIN,TOTAL 1.2 MG/DL (0.2-1.0); BLOOD UREA NITROGEN 14 MG/DL (7-18); CALCIUM LEVEL 8.7 MG/DL (8.5-10.1); CARBON DIOXIDE LEVEL 27 MEQ/L (21-32); CHLORIDE LEVEL 107 MEQ/L (98-107); CREATININE FOR GFR 0.96 MG/DL (0.70-1.30); GLOMERULAR FILTRATION RATE > 60.0 (>60); GLUCOSE, FASTING 101 MG/DL (70-100); LIPASE 148 U/L (73-393); POTASSIUM SERUM 3.8 MEQ/L (3.5-5.1); SODIUM LEVEL 140 MEQ/L (136-145); TOTAL PROTEIN 7.1 GM/DL (6.4-8.2)
[2019-07-18] MEDS ORDERED: ISOVUE-370 76% 100ML VIAL (Q9967) As Ordered ONE (20:56)
--- NOTE | 2019-07-18 21:48 | REPVR ---
PROCEDURE INFORMATION: Exam: CT Abdomen And Pelvis With Contrast Exam date and time: 07/18/2019 8:57 PM Age: 29 years old Clinical indication: Abdominal pain; Generalized TECHNIQUE: Imaging protocol: Computed tomography of the abdomen and pelvis with intravenous contrast. Axial, coronal and sagittal reformatted images were created and reviewed. Radiation optimization: All CT scans at this facility use at least one of these dose optimization techniques: automated exposure control; mA and/or kV adjustment per patient size (includes targeted exams where dose is matched to clinical indication); or iterative reconstruction. Contrast material: ISOVUE 370; Contrast volume: 100 ml; Contrast route: IV; COMPARISON: No relevant prior studies available. FINDINGS: Lungs: Mild dependent linear stranding and groundglass, likely due to atelectasis. Liver: Diffuse hepatic steatosis. Gallbladder and bile ducts: No radiodense gallstones. No biliary ductal dilatation. Pancreas: Unremarkable. Spleen: Unremarkable. Adrenals: Unremarkable. Kidneys and ureters: No mass. No radiodense calculi. No hydronephrosis. Stomach and bowel: No bowel wall thickening. No obstruction. No pneumatosis. Appendix: Normal. Intraperitoneal space: No free fluid. No organized fluid collection. No free air. Vasculature: Unremarkable. No aneurysm. Lymph nodes: Small mesenteric lymph nodes, nonspecific in appearance. No pathologically enlarged lymph nodes. Bladder: Unremarkable. Reproductive: Unremarkable. Bones/joints: No acute osseous abnormality. Soft tissues: Unremarkable. IMPRESSION: 1. No CT evidence of acute intra-abdominal or pelvic pathology. 2. Additional findings, as above. Electronically signed by: Rachid Aguilar On 07/18/2019 21:48:20 PM
[2019-07-18] MEDS ORDERED: REGL10TA6 PO (22:16)
[2019-07-18 22:28] VITALS: BP 129/87
== END 2019-07-18 22:29 | disposition home or self-care (01) ==
LOC: M ED 17:56
DX: K52.9 Noninfective gastroenteritis and colitis, unspecified (principal); K21.9 Gastro-esophageal reflux disease without esophagitis; F33.9 Major depressive disorder, recurrent, unspecified; M54.9 Dorsalgia, unspecified; G89.29 Other chronic pain; Z98.890 Other specified postprocedural states; Z79.899 Other long term (current) drug therapy
CPT/HCPCS: 74177; 80048; 80076; 83690; 85025; 96360; 96361; 99284; Q9967

== ENCOUNTER → 2019-08-23 | Outpatient (REF) | payer OTHER ==
[~2019-08-23] MED LIST changes: +REGL10TA6 PO
== END ==
LOC: M LAB REF 13:29
PROVIDERS: ATTEND Physician Assistant Medical
DX: R05 Cough (principal)
CPT/HCPCS: 87486; 87581; 87633; 87798; U0002

== ENCOUNTER 2020-02-05 10:49 | Emergency (ER) | payer OTHER ==
[~2020-02-05] VITALS: Ht 175.3 cm; Wt 86.9 kg
[2020-02-05 10:50] VITALS: BP 134/78
[2020-02-05 11:51] LABS: BASO # 0.1 10^3/uL (0.0-0.2); BASO % 0.8 % (0.0-1.0); EOS % 0.5 % (0.0-3.0); HEMATOCRIT 40.6 % (42.0-52.0); HEMOGLOBIN 14.4 g/dl (13.5-17.5); LYMPH # 1.6 10^3/uL (1.5-5.0); LYMPH % 24.4 % (24.0-44.0); MEAN CORPUSCULAR HEMOGLOBIN 30.6 pg (27.0-33.0); MEAN CORPUSCULAR HGB CONC 35.5 g/dl (32.0-36.5); MEAN CORPUSCULAR VOLUME 86.2 fl (80.0-96.0); MONO # 0.6 10^3/uL (0.0-0.8); MONO % 9.1 % (0.0-5.0); NEUTROPHILS # 4.1 10^3/uL (1.5-8.5); NEUTROPHILS % 64.7 % (36.0-66.0); PLATELET COUNT, AUTOMATED 238 10^3/uL (150-450); RED BLOOD COUNT 4.71 10^6/uL (4.30-6.10); WHITE BLOOD COUNT 6.4 10^3/uL (4.0-10.0)
[2020-02-05 12:02] LABS: INR 0.97; PROTHROMBIN TIME 13.1 SECONDS (11.8-14.0)
[2020-02-05 12:03] LABS: PARTIAL THROMBOPLASTIN TIME 26.5 SECONDS (25.0-38.4)
[2020-02-05 12:17] LABS: ALBUMIN 4.2 GM/DL (3.2-5.2); ALT/SGPT 35 U/L (12-78); BILIRUBIN,DIRECT 0.2 MG/DL (0.0-0.2); BILIRUBIN,TOTAL 0.8 MG/DL (0.2-1.0); BLOOD UREA NITROGEN 21 MG/DL (7-18); C REACTIVE PROTEIN QUANTITATIV 0.42 MG/DL (0.00-0.30); CARBON DIOXIDE LEVEL 34 MEQ/L (21-32); CHLORIDE LEVEL 106 MEQ/L (98-107); CREATININE FOR GFR 0.88 MG/DL (0.70-1.30); GLOMERULAR FILTRATION RATE > 60.0 (>60); GLUCOSE, FASTING 92 MG/DL (70-100); POTASSIUM SERUM 4.3 MEQ/L (3.5-5.1); SODIUM LEVEL 140 MEQ/L (136-145); TOTAL PROTEIN 7.2 GM/DL (6.4-8.2)
[2020-02-05] MEDS ORDERED: ANUS25SU PR (12:27)
[2020-02-05] MEDS ORDERED: PROT1TAB2 PO (12:27)
[2020-02-05 12:41] LABS: ERYTHROCYTE SEDIMENTATION RATE 6 mm/hr (0-15)
== END 2020-02-05 12:35 | disposition home or self-care (01) ==
LOC: M ED 10:49
DX: K92.2 Gastrointestinal hemorrhage, unspecified (principal); K21.9 Gastro-esophageal reflux disease without esophagitis; F41.9 Anxiety disorder, unspecified; F32.9 Major depressive disorder, single episode, unspecified

== ENCOUNTER 2020-03-03 14:37 | Inpatient (IN) | payer OTHER ==
[~2020-03-03] VITALS: Ht 175.3 cm; Wt 86.9 kg
[~2020-03-03 14:37] MED LIST changes: +ANUS25SU PR; +PROT1TAB2 PO
[2020-03-03] MEDS ORDERED: VENL75CA47 PO (14:48)
[2020-03-03 15:34] LABS: HEMATOCRIT 43.3 % (42.0-52.0); HEMOGLOBIN 15.4 g/dl (13.5-17.5); MEAN CORPUSCULAR HEMOGLOBIN 30.9 pg (27.0-33.0); MEAN CORPUSCULAR HGB CONC 35.6 g/dl (32.0-36.5); MEAN CORPUSCULAR VOLUME 86.9 fl (80.0-96.0); PLATELET COUNT, AUTOMATED 249 10^3/uL (150-450); RED BLOOD COUNT 4.98 10^6/uL (4.30-6.10); WHITE BLOOD COUNT 6.6 10^3/uL (4.0-10.0)
[2020-03-03 16:17] LABS: ALBUMIN 3.8 GM/DL (3.2-5.2); ALT/SGPT 41 U/L (12-78); BILIRUBIN,DIRECT 0.2 MG/DL (0.0-0.2); BILIRUBIN,TOTAL 0.7 MG/DL (0.2-1.0); BLOOD UREA NITROGEN 14 MG/DL (7-18); CALCIUM LEVEL 9.1 MG/DL (8.5-10.1); CARBON DIOXIDE LEVEL 29 MEQ/L (21-32); CHLORIDE LEVEL 108 MEQ/L (98-107); GLOMERULAR FILTRATION RATE > 60.0 (>60); GLUCOSE, FASTING 95 MG/DL (70-100); POTASSIUM SERUM 3.8 MEQ/L (3.5-5.1); SALICYLATE LEVEL < 1.7 MG/DL (5.0-30.0); SODIUM LEVEL 143 MEQ/L (136-145); THYROID STIMULATING HORMONE 0.429 uIU/ML (0.358-3.740); TOTAL PROTEIN 7.1 GM/DL (6.4-8.2)
[2020-03-03 16:18] LABS: ACETAMINOPHEN LEVEL < 2.0 UG/ML (10.0-30.0); ETHYL ALCOHOL (ETHANOL) < 0.003 % (0.000-0.010)
[2020-03-03] MEDS ORDERED: OMEP40CA97 PO (16:45)
[2020-03-03] MEDS ORDERED: HYDR-3363 PO ×2 (16:45)
[2020-03-03 17:41] LABS: AMPHETAMINES LEVEL URINE NEGATIVE (NEGATIVE); BARBITURATES URINE NEGATIVE (NEGATIVE); BENZODIAZEPINES URINE NEGATIVE (NEGATIVE); CANNABINOIDS URINE NEGATIVE (NEGATIVE); COCAINE METABOLITE URINE NEGATIVE (NEGATIVE); METHADONE URINE NEGATIVE (NEGATIVE); OPIATES URINE NEGATIVE (NEGATIVE); PHENCYCLIDINE URINE NEGATIVE (NEGATIVE)
[2020-03-03] MEDS ORDERED: MAALOX 30 ML SUSP *UDC PO PRN (19:45)
[2020-03-03] MEDS ORDERED: hydrOXYzine 25 MG TAB PO PRN (19:45)
[2020-03-03] MEDS ORDERED: ACETAMINOPHEN TAB 650MG DOSE (2X325MG) PO PRN (19:45)
[2020-03-03] MEDS ORDERED: MOM 30ML SUSPENSION UDC PO PRN (19:45)
[2020-03-03] MEDS ORDERED: traZODone 50 MG TAB PO PRN (19:45)
[2020-03-03 21:28] VITALS: BP 147/98
[2020-03-04 06:53] VITALS: BP 129/71
[2020-03-04] MEDS: VENLAFAXINE **XR** 75MG CAPSULE PO SCH (08:27)
[2020-03-04] MEDS: NICOTINE 21MG/24HR 1 EA TRANSDERMAL TD SCH (08:27)
[2020-03-04] MEDS: OMEPRAZOLE 20 MG CAP PO SCH (08:27)
[2020-03-04] MEDS: hydrOXYzine 25 MG TAB PO SCH (08:28)
[2020-03-04] MEDS ORDERED: INFLUENZA QUADRIVALENT PF VACCINE 0.5ML SYRINGE IM ONE (09:00)
--- NOTE | 2020-03-04 09:06 | MHHPEPDOC ---
[facility] History & Physical History and Physical DATE OF ADMISSION: Mar 03, 2020 at 19:34 Subjective HPI: Norbert presents today for concerns regarding nightmares of deployment for 2 months and depression. Patient affirms suicidal thoughts stating that he had them last week. In the past, hes had them 5-7 days a week for about 2.5 years. MEDICATIONS: Current medications include 225 mg Effexor, which showed positive results. MEDICAL HISTORY: Patient sees providers at [facility]. Patient was last seen in the facility in September 2014. This is his 5th time in the facility. Patient has no history of voices and suicide attempts. However, patient does have problems sleeping, staying asleep, fatigue and nightmares. FAMILY HISTORY: Patient does not have any history of mental health problems. 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 Patient doesnt want to work there, but he needs the income. SOCIAL HISTORY - LIVING SITUATION: Patient is relapsing into old habits. Hes not talking to people and lying to his therapist about his condition. Patient is currently living with his girlfriend. He states that his home life is good and his girlfriend makes him feel much better than his Ex-. SOCIAL HISTORY - SUBSTANCE USE: He is in recovery for alcohol. SOCIAL HISTORY - SMOKING: Patient has a history of smoking tobacco, but nothing else. Patient has quit smoking in the past, and his girlfriend is trying to quit smoking now. Objective Appearance: Well nourished. Hygiene - Fair. Appears to be stated age. Affect: Somewhat guarded and dysthemic constricted. Speech: Normal volume. Normal rate. Spontaneous and Fluid. Thought Form: Linear and logical. Thought Content: No evidence of delusions. No evidence of suicidal ideation. No evidence of aggressive or homicidal ideation. No thoughts of self harm. Judgement: Poor - Fair. Insight: Poor - Fair. 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 Start Prazosin 1 mg nightly for nightmares. Stay 1-3 days. Tx priorities 1. risk for suicide 2. Ineffective coping Vital Signs Vital Signs Date Time Temp Pulse Resp B/P (MAP) Pulse Ox O2 Delivery O2 Flow Rate FiO2 03/04/20 06:53 98.8 80 14 129/71 (90) 97 Room Air Laboratory Data 24H Labs Laboratory Tests 2 03/03/20 15:07: Urine Opiates Screen NEGATIVE, Urine Methadone Screen NEGATIVE, Urine Barbiturates Screen NEGATIVE, Urine Phencyclidine Screen NEGATIVE, Urine Amphetamines Screen NEGATIVE, Urine Benzodiazepines Screen NEGATIVE, Urine Cocaine Metabolite Screen NEGATIVE, Urine Cannabinoids Screen NEGATIVE 03/03/20 15:12: Nucleated Red Blood Cells % (auto) 0.0, Anion Gap 6L, Glomerular Filtration Rate > 60.0, Calcium Level 9.1, Total Bilirubin 0.7, Direct Bilirubin 0.2, Aspartate Amino Transf (AST/SGOT) 21, Alanine Aminotransferase (ALT/SGPT) 41, Alkaline Ph osphatase 59, Total Protein 7.1, Albumin 3.8, Albumin/Globulin Ratio 1.2, Thyroid Stimulating Hormone (TSH) 0.429, Salicylates Level < 1.7L, Acetaminophen Level < 2.0L, Ethyl Alcohol Level < 0.003 CBC/BMP Laboratory Tests 03/03/20 15:12 Medications Scheduled Hydroxyzine HCl (Hydroxyzine HCl) 25 Mg Tablet, 50 MG PO QAM, (Reported) Omeprazole (Omeprazole) 40 Mg Capsule.dr, 40 MG PO DAILY, (Reported) Venlafaxine HCl (Venlafaxine HCl ER) 75 Mg Cap.er.24h, 225 MG PO DAILY, (Reported) Scheduled PRN Hydroxyzine HCl (Hydroxyzine HCl) 25 Mg Tablet, 25 MG PO QHS PRN for ANXIETY, (Reported) Allergies Coded Allergies: No Known Allergies (Unverified , 04/27/18) YANDY CASTILLO DO Mar 04, 2020 09:06
[2020-03-04 17:22] VITALS: BP 139/94
--- NOTE | 2020-03-04 20:05 | HPEPDOC ---
[facility] Medical History & Physical Date of Admission Mar 03, 2020 Date of Service: Mar 04, 2020 History and Physical CHIEF COMPLAINT: Depression, suicidal ideation HISTORY OF PRESENT ILLNESS: Mr. Briones is a 30-year-old male with depression and anxiety in the inpatient mental health unit for suicide ideation. Today he feels well. He denies any fever or chills, lightheadedness or dizziness, chest pain, dyspnea, abdominal pain, diarrhea, or dysuria. He tells in the past 6 months he's been eating more because of stress. Otherwise he tells me that he is recovering from alcohol and drug use. PAST MEDICAL HISTORY: 1. Tinnitus 2. GERD 3. Depression 4. Anxiety PAST SURGICAL HISTORY: 1. Vasectomy 2. Dental surgery. SOCIAL HISTORY: Tobacco use: He tells me that he smokes on and off. When he does smoke, about a third a pack per day Alcohol use: Denies alcohol use. Tells me that he is a recovering alcoholic Recreational drug use: Denies recreational drug use. Tells me that he is recovering FAMILY HISTORY: He denies known medical history and his parents. Denies any heart disease, cancer, or diabetes. He tells me his parents are healthy ALLERGIES: Please see below. REVIEW OF SYSTEMS: CONSTITUTIONAL: Denies any fever or chills. Denies lightheadedness or dizziness. ENT: Denies sore throat. Denies dysphagia. RESPIRATORY: Denies shortness of breath. Denies cough. CARDIOVASCULAR: Denies chest pain. Denies palpitations. GASTROINTESTINAL: Reports constipation (but improved). Denies abdominal pain. Denies diarrhea. GENITOURINARY: Denies dysuria. CUTANEOUS: Denies rashes. MUSCULOSKELETAL: Denies muscle weakness. NEUROLOGICAL: Denies neuropathy. Denies paresthesias. PSYCHOLOGICAL: Stress HOME MEDICATIONS: Please see below. PHYSICAL EXAMINATION: VITAL SIGNS: Temperature 98.8, pulse 80, respiratory rate 14, blood pressure 129/71, pulse oximetry and 97 % on room air. GENERAL: Comfortable, in no apparent distress. HEENT: Head normocephalic/atraumatic, EOMI, sclera clear. NECK: Supple, no JVD. RESPIRATORY: Lungs clear to auscultation bilaterally, no rales, wheeze or rhonchi. CARDIOVASCULAR: Regular rate and rhythm. ABDOMEN: Soft, nontender, no guarding or rebound tenderness. Normal bowel sounds. MUSCLE SKELETAL: Muscle strength 5/5 in all extremities. NEUROLOGICAL: CN 312 grossly intact, no focal deficits noted. PSYCHOLOGICAL: Normal mood and affect LABORATORY DATA: See below. MICROBIOLOGY: Please see below. ASSESSMENT AND PLAN: 1. Depression/anxiety/suicide ideation Being managed in the inpatient mental health unit 2. Tobacco use Patient on nicotine patch 3. GERD On omeprazole Thank you for involving us in the patient's care. We will sign off at this time. If there is any further questions or concerns please do not hesitate to contact us. Vital Signs Vital Signs Date Time Temp Pulse Resp B/P (MAP) Pulse Ox O2 Delivery O2 Flow Rate FiO2 03/04/20 17:22 98.6 100 16 139/94 (109) 03/04/20 06:53 97 Room Air Home Medications Scheduled Hydroxyzine HCl (Hydroxyzine HCl) 25 Mg Tablet, 50 MG PO QAM Omeprazole (Omeprazole) 40 Mg Capsule.dr, 40 MG PO DAILY Venlafaxine HCl (Venlafaxine HCl ER) 75 Mg Cap.er.24h, 225 MG PO DAILY Scheduled PRN Hydroxyzine HCl (Hydroxyzine HCl) 25 Mg Tablet, 25 MG PO QHS PRN for ANXIETY Allergies Coded Allergies: No Known Allergies (Unverified , 04/27/18) A-FIB/CHADSVASC A-FIB History Current/History of A-Fib/PAF?: No SHRUTHI ZAVALETA DO Mar 04, 2020 20:05
[2020-03-04] MEDS ORDERED: ARIPiprazole 2 MG TAB PO SCH (21:00)
[2020-03-04] MEDS: PRAZOSIN 1 MG CAP PO SCH (21:14)
[2020-03-05 06:36] VITALS: BP 135/56
[2020-03-05] MEDS: hydrOXYzine 25 MG TAB PO SCH (09:08)
[2020-03-05] MEDS: NICOTINE 21MG/24HR 1 EA TRANSDERMAL TD SCH (09:08)
[2020-03-05] MEDS: VENLAFAXINE **XR** 75MG CAPSULE PO SCH (09:08)
[2020-03-05] MEDS: OMEPRAZOLE 20 MG CAP PO SCH (09:08)
--- NOTE | 2020-03-05 10:04 | MHIPNPDOC ---
[facility] Progress Note Progress Note DATE OF SERVICE: 03/05/20 Subjective HPI: Norbert presents today for concerns regarding his psych issues. Patient denies any side effects using the patch. He denies any suicidal thoughts. Reports that he hasnt had any since he got here. Patient states that the groups have been renewing his skills. Objective Appearance: Well groomed. Well nourished. Appears to be stated age. Behavior: Engaged. Pleasant. Cooperative with good eye contact. Affect: Full range. Appropriate to context. Mood: Euthymic. Generally good. Appropriately reactive. Speech: Normal volume. Normal rate. Spontaneous and Fluid. Motor: No gross motor abnormalities. Cognition: Alert, Attentive, and Oriented to person, place, time. Memory: No gross abnormalities of short or senior living memory noted during interview. No formal testing. Thought Form: Linear and goal directed. Thought Content: No evidence of delusions. No thoughts of self harm. No evidence of suicidal ideation. No evidence of aggressive or homicidal ideation. Perception: No perceptual abnormalities noted. Judgement: Intact as evidenced by decision making in the recent past. Insight: Good insight into symptoms and treatment options. 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 Will discharge tomorrow. Vital Signs Vital Signs Date Time Temp Pulse Resp B/P (MAP) Pulse Ox O2 Delivery O2 Flow Rate FiO2 03/05/20 06:36 98.0 92 18 135/56 (82) 03/04/20 06:53 97 Room Air Current Medications Current Medications Medications (Trade) Dose Ordered Sig/Haley Route PRN Reason Start Time Stop Time Status Last Admin Dose Admin Acetaminophen (Tylenol Tab) 650 mg Q6HP PRN PO HEADACHE or DISCOMFORT 03/03/20 19:45 Al Hydrox/Mg Hydrox/Simethicone (Mylanta) 30 ml Q4HP PRN PO HEARTBURN/INDIGESTION 03/03/20 19:45 Aripiprazole (AbiLIFY) 2 mg QHS PO 03/04/20 21:00 03/04/20 11:34 DC Home Med (Med Rec Complete!) ASDIRECTED XX 03/03/20 17:00 03/03/20 16:48 DC Hydroxyzine HCl (Atarax) 25 mg QHS PRN PO ANXIETY 03/03/20 19:45 Hydroxyzine HCl (Atarax) 50 mg QAM PO 03/04/20 09:00 03/05/20 09:08 Magnesium Hydroxide (Milk Of Magnesia) 30 ml DAILYPRN PRN PO CONSTIPATION 03/03/20 19:45 Nicotine (Nicoderm Cq 21mg) 1 patch DAILY TD 03/04/20 09:00 03/05/20 09:08 Omeprazole (PriLOSEC) 40 mg DAILY PO 03/04/20 09:00 03/05/20 09:08 Prazosin HCl (Minipress) 1 mg QHS PO 03/04/20 21:00 03/04/20 21:14 Trazodone HCl (Desyrel) 50 mg QHSP PRN PO INSOMNIA 03/03/20 19:45 Venlafaxine HCl (Effexor Xr) 225 mg DAILY PO 03/04/20 09:00 03/05/20 09:08 Allergies Coded Allergies: No Known Allergies (Unverified , 04/27/18) YANDY CASTILLO DO Mar 05, 2020 10:04
[2020-03-05 20:51] VITALS: BP 138/85
[2020-03-05] MEDS: PRAZOSIN 1 MG CAP PO SCH (20:51)
[2020-03-06 06:24] VITALS: BP 123/72
[2020-03-06] MEDS: NICOTINE 21MG/24HR 1 EA TRANSDERMAL TD SCH (08:23)
[2020-03-06] MEDS: hydrOXYzine 25 MG TAB PO SCH (08:23)
[2020-03-06] MEDS: OMEPRAZOLE 20 MG CAP PO SCH (08:23)
[2020-03-06] MEDS: VENLAFAXINE **XR** 75MG CAPSULE PO SCH (08:23)
[2020-03-06] MEDS ORDERED: MINI1CAP PO (09:46)
--- NOTE | 2020-03-06 10:05 | MHDSPDOC ---
[facility] Discharge Summary Discharge Summary DATE OF ADMISSION: Mar 03, 2020 at 19:34 DATE OF DISCHARGE: March 06, 2020 DISCHARGE DIAGNOSES: 1. F43.12 Post-traumatic stress disorder, chronic 2. 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 He had reported that he was failing himself and had not used his coping skills to combat some of his stressor: 1) fighting with his ex-, 2) stress from a co-worker who is antagonizing and gas lighting him, 3) missing his children who live in [place] CONSULTANTS INVOLVED: See Medical H + P Consult by Medical MD TREATMENT AND PROGRESS ON THE UNIT : TREATMENT AND PROGRESS ON THE UNIT : Patient was admitted to the [facility] on a 9.39 legal status he was afforded the following treatment modalities: 1) Individual Therapy 2) Group Therapy 3) Medication Management 4) Milieu Therapy 5) Safe Environment HOSPITAL COURSE: Patient started on his home medications, he attended groups, was appropriate in individual therapy. 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 Prazosin was added to his regimen. DISCHARGE ASSESSMENT: At this time patient is reporting to have stability in mood and feels safe for discharge. MENTAL STATUS EXAMINATION ON DISCHARGE: Patient is a 30-year old male, who is calm and cooperative. Wearing hospital scrubs and t-shirt. His hygiene and grooming is well kempt. Eye contact is good, no psychomotor retardation or agitation Speech is spontaneous, fluid, normal rate tone and volume Language skills are intact Thought processes including: linear and goal oriented Thought content: reports decrease in depression, anxiety, with no suicidal ideation, no paranoia, no marianne, no a/v hallucination, no obsessions Abstract reasoning, and computation: able to demonstrate good reasoning Description of associations: none noted, pt denies Description of abnormal or psychotic thoughts: none noted, pt denies Judgment: good Insight: good Orientation to person, place, time and situation Recent and remote memory: intact Attention span and concentration: good Language: expansive Fund of knowledge: average Mood: euthymic Affect: congruent with mood MEDICATIONS ON DISCHARGE: Patient is continued on his home medications, states he has medications at home and does not need renewals. Prazosin 1 mg ordered and electronically sent to [facility] per his request. PLAN/FOLLOWUP ARRANGEMENTS: Patient is following up with [facility] where he previously had services. The amount of time spent in the coordination of care for this patient was approximately 20 minutes. Vital Signs/I&Os Vital Signs Date Time Temp Pulse Resp B/P (MAP) Pulse Ox O2 Delivery O2 Flow Rate FiO2 03/06/20 06:24 97.5 89 12 123/72 (89) Room Air 03/04/20 06:53 97 Medications Scheduled Hydroxyzine HCl (Hydroxyzine HCl) 25 Mg Tablet, 50 MG PO QAM, (Reported) Omeprazole (Omeprazole) 40 Mg Capsule.dr, 40 MG PO DAILY, (Reported) Prazosin HCl (Minipress) 1 Mg Capsule, 1 MG PO QHS for nightmares, #7 Venlafaxine HCl (Venlafaxine HCl ER) 75 Mg Cap.er.24h, 225 MG PO DAILY, (R eported) Scheduled PRN Hydroxyzine HCl (Hydroxyzine HCl) 25 Mg Tablet, 25 MG PO QHS PRN for ANXIETY, (Reported) Allergies Coded Allergies: No Known Allergies (Unverified , 04/27/18) СВЕТЛАНА DE LA O NP Mar 06, 2020 10:05
== END 2020-03-06 12:00 | disposition home or self-care (01) | DRG 882 ==
LOC: M ED 14:37 → M ED INP 19:34 → M PSY 21:12
PROVIDERS: ADMIT Psychiatry & Neurology Psychiatry; ATTEND Psychiatry & Neurology Addiction Medicine
DX: F43.12 Post-traumatic stress disorder, chronic (principal); R45.851 Suicidal ideations; F60.89 Other specific personality disorders; Z79.899 Other long term (current) drug therapy; F17.200 Nicotine dependence, unspecified, uncomplicated